=== PATIENT | male | born 1975 | race American Indian/Alaskan Native ===

== ENCOUNTER 2017-04-08 22:28 | Emergency (ER) | payer MEDICAID ==
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
[2017-04-08] MEDS ORDERED: TYLENOL PO ONE (23:29)
[2017-04-08] MEDS ORDERED: MORPHINE IV ONE (23:29)
[2017-04-08] MEDS ORDERED: NITROSTAT SL PRN (23:29)
[2017-04-08 23:51] LABS: Basophils % (Auto) 0.6 % (0.0-1.8); Eosinophils % (Auto) 0.2 % (0.0-4.3); Hematocrit 47.6 % (35.5-45.6); Mean Corpuscular HGB Conc 32 % (32-34); Mean Corpuscular Volume 78 fl (84-94); Platelet Count 177 K/mm3 (140-440); Red Blood Count 6.11 M/mm3 (3.65-5.03); Red Cell Distribution Width 14.1 % (13.2-15.2); White Blood Count 14.1 K/mm3 (4.5-11.0)
[2017-04-08 23:56] LABS: Mean Corpuscular Hemoglobin 25 pg (28-32)
[2017-04-09 00:02] LABS: INR 0.97 (0.87-1.13)
[2017-04-09 00:03] LABS: Partial Thromboplastin Time 24.4 Sec. (24.2-36.6)
[2017-04-09 00:05] LABS: Anion Gap 27 mmol/L; BUN/Creatinine Ratio 13; Blood Urea Nitrogen 9 mg/dL (9-20); Calcium 9.6 mg/dL (8.4-10.2); Carbon Dioxide 21 mmol/L (22-30); Chloride 93.9 mmol/L (98-107); Glucose 66 mg/dL (75-100); Potassium 4.1 mmol/L (3.6-5.0); Sodium 138 mmol/L (137-145)
[2017-04-09] MEDS ORDERED: NACL 0.9% 1000 ML 1,000 ML IV ONE (00:30)
[2017-04-09] MEDS ORDERED: TORADOL IV ONE (00:31)
[2017-04-09] MEDS ORDERED: BABY ASPIRIN PO ONE (00:36)
[2017-04-09] MEDS ORDERED: NACL ONE (00:46)
[2017-04-09 01:25] VITALS: BP 144/89
--- NOTE | 2017-04-09 08:12 | XRay Report ---
CHEST TWO VIEWS: 04/08/17 22:28:00 CLINICAL: Chest pain. COMPARISON: None FINDINGS: Normal heart and pulmonary vasculature. The lungs are mildly hyperinflated. No air space disease or pleural effusion.The bones and soft tissues are normal. IMPRESSION: Mild pulmonary hyperinflation but otherwise normal.
== END 2017-04-09 02:11 | disposition left against medical advice (07) ==
LOC: ED 22:28
DX: R07.89 Other chest pain (principal); R94.31 Abnormal electrocardiogram [ECG] [EKG]; I10 Essential (primary) hypertension; F17.200 Nicotine dependence, unspecified, uncomplicated
CPT/HCPCS: 36415; 71020; 80048; 84484; 85025; 85379; 85610; 85730; 93005; 93010; 99285; J7030; J1885; J2270